=== PATIENT | female | born 1960 | race Caucasian/White ===

== ENCOUNTER 2017-03-13 22:11 | Emergency (ER) | payer OTHER ==
[2017-03-14] MEDS ORDERED: Acetaminophen/Butalbital/Caffeine 325-50-40 MG Tab PO ONE (01:10)
[2017-03-14] MEDS ORDERED: Orphenadrine 100 MG Tab.ER PO STA (01:10)
--- NOTE | 2017-03-14 01:13 | EDM.PDOC ---
ED HPI GENERAL MEDICAL PROBLEM - General Chief Complaint: Headache Stated Complaint: HEADACHE Time Seen by Provider: 03/14/17 00:39 Source of Information: Reports: Patient, RN Notes Reviewed History Limitations: Reports: No Limitations - History of Present Illness INITIAL COMMENTS - FREE TEXT/NARRATIVE: The patient states that she has cervical disc disease, causing chronic pain and recurrent headaches. She reports that she developed a typical headache, involving most of her head earlier today. The pain is is sharp and throbbing in character. She took half a tablet of [place] 3 times today, along with 10 mg of Flexeril around 20:00, without relief. She states that she saw her chiropractor around 19:00, and while she had some initial relief, the pain came back. She states that she has some photophobia, but no phonophobia. No visual changes. The fingers of her right hand are tingling, but this is chronic, due to carpal tunnel syndrome. She states that she has had similar symptoms in the past, approximately once a year for the past 10 years. She states that she was evaluated by 2 different spinal surgeons, both of whom felt that she did not need surgery. Her PCP is Dr. Blankenship. Headache Pain Score (Numeric/FACES): 10 - Related Data Allergies Allergy/AdvReac Type Severity Reaction Status Date / Time Penicillins Allergy Rash Verified 06/16/15 00:53 Home Meds: Home Meds Cyclobenzaprine [Flexeril] 10 mg PO BEDTIME 03/13/17 [History] Hydrocodone/Acetaminophen [Hydrocodon-Acetaminophen 5-325] 1 tab PO BID [History] Past Medical History Musculoskeletal History: Reports: Fibromyalgia, Other (See Below) (Chronic neck pain) - Past Surgical History Female Surgical History: Reports: Breast Implant, Other (See Below) ( Endometrial ablation) Social & Family History - Tobacco Use Smoking Status *Q: Current Every Day Smoker Years of Tobacco use: 25 Packs/Tins Daily: 1 - Caffeine Use Caffeine Use: Reports: Tea - Alcohol Use Alcohol Use History: Yes Alcohol Use Frequency: Socially - Recreational Drug Use Recreational Drug Use: No - Living Situation & Occupation Living situation: Reports: , with Spouse Occupation: Employed (embedded software programmer retail) ED ROS GENERAL - Review of Systems Review Of Systems: See Below Constitutional: Reports: No Symptoms HEENT: Reports: No Symptoms Respiratory: Reports: No Symptoms Cardiovascular: Reports: No Symptoms Endocrine: Reports: No Symptoms GI/Abdominal: Reports: No Symptoms : Reports: No Symptoms Musculoskeletal: Reports: No Symptoms Skin: Reports: No Symptoms Neurological: Reports: No Symptoms Psychiatric: Reports: No Symptoms Hematologic/Lymphatic: Reports: No Symptoms Immunologic: Reports: No Symptoms - Physical Exam Exam: See Below Exam Limited By: No Limitations General Appearance: Alert, WD/WN, No Apparent Distress Eye Exam: Bilateral Eye: EOMI, Normal Inspection, PERRL Ears: Normal External Exam, Hearing Grossly Normal Nose: Normal Inspection, No Blood Throat/Mouth: Normal Inspection, Normal Lips, Normal Voice, No Airway Compromise Head Exam: Atraumatic, Normocephalic Neck: Normal Inspection, Full Range of Motion Respiratory/Chest: No Respiratory Distress, Lungs Clear, Normal Breath Sounds, No Accessory Muscle Use Cardiovascular: Normal Peripheral Pulses, Regular Rate, Rhythm, No Gallop, No JVD, No Murmur, No Rub GI/Abdominal: Normal Bowel Sounds, Soft, Non-Tender, No Organomegaly, No Distention, No Abnormal Bruit, No Mass (Female) Exam: Deferred Rectal (Female) Exam: Deferred Neuro Exam (Abbreviated): Alert, Oriented, Normal Cognition, No Motor/Sensory Deficits Back Exam: Normal Inspection, Full Range of Motion, NT Extremities: Normal Inspection, Normal Range of Motion, No Pedal Edema, Normal Capillary Refill Psychiatric: Normal Affect Skin Exam: Warm, Dry, Intact, Normal Color, No Rash Course - Vital Signs Last Recorded V/S: Last Vital Signs Temp 37 C 03/13/17 22:51 Pulse 88 03/14/17 01:24 Resp 18 03/14/17 01:24 BP 132/80 03/14/17 01:24 Pulse Ox 99 03/14/17 01:24 - Orders/Labs/Meds Meds: Medications Discontinued Medications Generic Name Dose Route Start Last Admin Trade Name Ivette PRN Reason Stop Dose Admin Acetaminophen/Butalbital/Caffeine 1 tab 03/14/17 01:10 03/14/17 01:17 Fioricet 325-50-40 Mg PO 03/14/17 01:11 1 tab ONETIME ONE Administration Orphenadrine Citrate 100 mg 03/14/17 01:10 03/14/17 01:18 Norflex PO 03/14/17 01:11 100 mg ONETIME STA Administration - Re-Assessments/Exams Free Text/Narrative Re-Assessment/Exam: 03/14/17 01:11 Clinically, the patient has a tension-type headache. She does not appear to be in any acute distress. I'm recommending Fioricet and Norflex. She states that she will call a cab to get home. Departure - Departure Time of Disposition: 01:11 Disposition: Home, Self-Care 01 Condition: Good Clinical Impression: Tension type headache - Discharge Information Instructions: Tension Headache Referrals: Griffin Blankenship MD [Primary Care Provider] - Forms: ED Department Discharge Additional Instructions: You were seen in the emergency room for a headache. Clinically, you have a tension-type headache. You have been treated with Fioricet and Norflex. We recommend you get plenty of rest in a dark, quiet place. Stay well hydrated. Follow-up with your PCP, Dr. Blankenship, as needed. If any other problems, please do not hesitate to return to the ER.
[2017-03-14 01:37] VITALS: BP 132/80
== END 2017-03-14 01:24 | disposition home or self-care (01) ==
LOC: JD.ED 22:11
DX: G44.209 Tension-type headache, unspecified, not intractable (principal); F17.210 Nicotine dependence, cigarettes, uncomplicated; Z98.82 Breast implant status; Z88.0 Allergy status to penicillin
CPT/HCPCS: 99284; A9270; 99283

== ENCOUNTER → 2023-06-06 | Day surgery (SDC) | payer BC, MEDICARE ==
[~2023-06-06] MED LIST: Acetaminophen/HYDROcodone 325-5 MG Tab PO SCH; Bupivacaine 0.25% 10 ML SDV ONE; Clindamycin in 0.9 % Sod Chlor 900 MG in Premix Bag 1 BAG IV ONE; Lactated Ringers 1,000 ML IV SCH; Lidocaine 1% 10 ML MDV ONE; Midazolam 1 MG/ML 2 ML SDV ONE; Propofol 200 MG/20 ML SDV ONE; Sodium Chloride 0.9% 10 ML Syringe FLUSH PRN; Sodium Chloride 0.9% 10 ML Syringe FLUSH SCH; Triamcinolone Acetonide 40 MG/ML 1 ML SDV ONE; fentaNYL 100 MCG/2 ML SDV ONE
[2023-06-06 11:20] VITALS: BP 109/82; PULSE 78
== END | disposition home or self-care (01) ==
LOC: JD.SDS 05:45
PROVIDERS: ATTEND Orthopaedic Surgery
DX: M19.041 Primary osteoarthritis, right hand (principal); M25.841 Other specified joint disorders, right hand; M79.7 Fibromyalgia; F17.210 Nicotine dependence, cigarettes, uncomplicated; F17.290 Nicotine dependence, other tobacco product, uncomplicated; Z79.1 Long term (current) use of non-steroidal anti-inflammatories (NSAID); Z79.899 Other long term (current) drug therapy; Z88.0 Allergy status to penicillin; Z88.8 Allergy status to other drugs, medicaments and biological substances
CPT/HCPCS: 20600; 26160; A9270; J2250; J2704; J3010; J3301; J3490; J7120; 01810

== ENCOUNTER 2024-08-05 16:36 | Emergency (ER) | payer MEDICARE, OTHER ==
[2024-08-05 17:23] VITALS: BP 138/95
[2024-08-05] MEDS: Diphtheria,Pertussis(Acell),Tetanus Vaccine 0.5 ML Syringe IM ONE (18:56)
[2024-08-05] MEDS: cefTRIAXone 1 GM, Lidocaine 1% 2.1 ML IM ONE (19:04)
[2024-08-05] MEDS: Lidocaine 1% 10 ML MDV INJECT ONE (19:06)
[2024-08-05 19:21] VITALS: PULSE 67
== END 2024-08-05 19:07 | disposition home or self-care (01) ==
LOC: JD.ED 16:36
DX: S61.451A Open bite of right hand, initial encounter (principal); Z90.710 Acquired absence of both cervix and uterus; Z79.899 Other long term (current) drug therapy; Z88.0 Allergy status to penicillin; Z88.8 Allergy status to other drugs, medicaments and biological substances; Z23 Encounter for immunization; W54.0XXA Bitten by dog, initial encounter
CPT/HCPCS: 12002; 90471; 90715; 96372; 99283; J0696; J3490